=== PATIENT | female | born 1990 | race Caucasian/White ===

== ENCOUNTER 2018-05-16 09:35 | Observation (INO) | payer MEDICAID ==
[~2018-05-16] VITALS: Ht 162.6 cm; Wt 84.8 kg
[2018-05-16] MEDS ORDERED: PNV1TABL76 MT (10:17)
[2018-05-16] MEDS ORDERED: LACTATED RINGERS 1,000 ML IV SCH ×2 (10:20→10:45)
[2018-05-16 10:51] LABS: HEMOGLOBIN. 12.7 g/dL (12.0-16.0); MEAN CORPUSCULAR VOLUME 87.8 fL (81.0-99.0); MEAN PLATELET VOLUME 8.9 fl (7.4-10.4); PLATELET 212 x1000/uL (130-400); RED BLOOD CELL COUNT 4.22 mill/uL (4.2-5.4); RED CELL DISTRIBUTION WIDTH 14.2 % (11.6-14.6)
[2018-05-16 11:02] LABS: CHLORIDE 109 mEq/L (98-107)
[2018-05-16 11:13] LABS: PLATELET ESTIMATE NORMAL
[2018-05-16] MEDS ORDERED: ONDA4TAB5 PO (11:38)
== END 2018-05-16 11:50 | disposition home or self-care (01) ==
LOC: 8 EST LDRP 09:35
PROVIDERS: ADMIT Specialist; ATTEND Specialist
DX: O21.2 Late vomiting of pregnancy (principal); O26.893 Other specified pregnancy related conditions, third trimester; R19.7 Diarrhea, unspecified; M54.5 Low back pain; Z3A.33 33 weeks gestation of pregnancy
CPT/HCPCS: 36415; 96360; 96361; 99281; G0378; J7120

== ENCOUNTER 2021-09-23 19:42 | Inpatient (IN) | payer MEDICAID, OTHER ==
[~2021-09-23] VITALS: Ht 162.6 cm; Wt 89.4 kg
[~2021-09-23 19:42] MED LIST: ONDA4TAB5 PO; PNV1TABL76 MT
[2021-09-23] MEDS ORDERED: HYDROCODONE/ACETAMINOPHEN 5/325MG TABLET PO ONE (21:00)
[2021-09-23 21:22] LABS: CLARITY URINE CLOUDY (CLEAR); COLOR URINE RED (YELLOW); KETONES URINE NEGATIVE (NEGATIVE); LEUKOCYTE ESTERASE URINE 1+ (NEGATIVE); NITRITE URINE POSITIVE (NEGATIVE); OCCULT BLOOD URINE 3+ (NEGATIVE); PROTEIN URINE 4+ (NEGATIVE); SPECIFIC GRAVITY URINE 1.036 (1.005-1.030); UROBILINOGEN URINE 0.2 E.U./dL (0.2-1.0)
[2021-09-23 21:22] LABS: BASOPHILS % 0.8 % (0.0-2.0); EOSINOPHILS % 0.6 % (0.0-5.0); LYMPHOCYTES % 32.6 % (20.0-50.0); MEAN CORPUSCULAR HEMOGLOBIN 22.2 pg (28.0-32.0); MEAN CORPUSCULAR VOLUME 71.6 fL (81.0-99.0); MEAN PLATELET VOLUME 8.1 fl (7.4-10.4); MONOCYTES % 6.7 % (2.0-8.0); NEUTROPHILS % 59.3 % (40.0-76.0); PLATELET 330 x1000/uL (130-400); RED BLOOD CELL COUNT 3.16 mill/uL (4.2-5.4)
[2021-09-23 21:25] LABS: HEMATOCRIT. 22.7 % (36.0-48.0)
[2021-09-23 21:30] LABS: CHLORIDE 111 mEq/L (98-107)
[2021-09-23 21:39] LABS: B-HCG QUANTITATIVE < 1 mIU/mL (<3)
[2021-09-23] MEDS ORDERED: CEFTRIAXONE 1 G PREMIX 50 ML IV ONE (21:45)
[2021-09-23] MEDS ORDERED: CEFTRIAXONE 1,000 MG in DEXTROSE 5% WATER 50 ML IV NR (22:00)
[2021-09-24] MEDS ORDERED: MAGNESIUM/ALUMINUM HYDROXIDE/SIMETHICONE 30ML UDC PO PRN (00:30)
[2021-09-24] MEDS ORDERED: DIPHENHYDRAMINE 50MG/ML VIAL IV PRN (00:30)
[2021-09-24] MEDS ORDERED: IPRATROPIUM/ALBUTEROL 0.5-3(2.5)MG/3ML NEB HHN PRN (00:30)
[2021-09-24] MEDS ORDERED: DOCUSATE SODIUM 100MG CAPSULE PO PRN (00:30)
[2021-09-24] MEDS ORDERED: HYDRALAZINE 20MG/ML VIAL IV PRN (00:30)
[2021-09-24] MEDS ORDERED: CEFTRIAXONE 1 G PREMIX 50 ML IV SCH (00:30)
[2021-09-24] MEDS ORDERED: GUAIFENESIN 200MG/10ML SUGAR FREE UDC PO PRN (00:30)
[2021-09-24] MEDS ORDERED: ONDANSETRON HCL 4MG/2ML INJ IV PRN (00:30)
[2021-09-24] MEDS ORDERED: CLONIDINE 0.1MG TABLET PO PRN (00:30)
[2021-09-24] MEDS: MORPHINE SULFATE 2 MG/ML CPJ (NOT FOR IM USE) IV PRN ×5 (01:14→22:57)
[2021-09-24] MEDS: HYDROCODONE/ACETAMINOPHEN 5/325MG TABLET PO PRN ×2 (03:26→09:31)
[2021-09-24] MEDS: SODIUM CHLORIDE 0.9% INJ 3ML FLUSH IVF SCH ×3 (05:45→22:53)
[2021-09-24] MEDS: ACETAMINOPHEN 325MG TABLET PO PRN (05:47)
[2021-09-24] MEDS ORDERED: NALOXONE HCL 0.4MG/ML VIAL IV PRN (08:15)
[2021-09-24 09:05] VITALS: BP 109/66
[2021-09-24 10:41] LABS: HEMATOCRIT 22.8 % (36.0-48.0); HEMOGLOBIN 7.6 g/dL (12.0-16.0); MEAN CORPUSCULAR HEMOGLOBIN 24.3 pg (28.0-32.0); MEAN CORPUSCULAR VOLUME 72.9 fL (81.0-99.0); PLATELET 252 x1000/uL (130-400); RED BLOOD CELL COUNT 3.13 mill/uL (4.2-5.4); RED CELL DISTRIBUTION WIDTH 17.5 % (11.6-14.6)
[2021-09-24 12:00] VITALS: BP 117/68
[2021-09-24] MEDS: MEDROXYPROGESTERONE ACET 5MG TABLET PO SCH (13:52)
[2021-09-24 14:23] LABS: CHLORIDE 107 mEq/L (98-107)
[2021-09-24 16:00] VITALS: BP 100/51
[2021-09-24 17:30] VITALS: BP 88/41
[2021-09-24] MEDS ORDERED: SODIUM CHLORIDE 0.9% 500 ML IV NR (17:45)
[2021-09-24 18:25] VITALS: BP 108/52
[2021-09-24] MEDS: CEFTRIAXONE 1,000 MG in DEXTROSE 5% WATER 50 ML IV SCH (22:52)
[2021-09-25] VITALS (11 sets, daily range): BP systolic 88–118; BP diastolic 39–65
[2021-09-25] MEDS: MORPHINE SULFATE 2 MG/ML CPJ (NOT FOR IM USE) IV PRN ×4 (04:38→21:10)
[2021-09-25 05:54] LABS: BASOPHILS % 0.4 % (0.0-2.0); EOSINOPHILS % 1.5 % (0.0-5.0); HEMATOCRIT. 22.3 % (36.0-48.0); HEMOGLOBIN. 7.1 g/dL (12.0-16.0); LYMPHOCYTES % 39.1 % (20.0-50.0); MEAN CORPUSCULAR HEMOGLOBIN 23.7 pg (28.0-32.0); MEAN CORPUSCULAR VOLUME 74.1 fL (81.0-99.0); MEAN PLATELET VOLUME 8.2 fl (7.4-10.4); MONOCYTES % 8.9 % (2.0-8.0); NEUTROPHILS % 50.1 % (40.0-76.0); PLATELET 241 x1000/uL (130-400); RED BLOOD CELL COUNT 3.01 mill/uL (4.2-5.4); RED CELL DISTRIBUTION WIDTH 17.1 % (11.6-14.6)
[2021-09-25 06:19] LABS: CHLORIDE 111 mEq/L (98-107)
[2021-09-25] MEDS: ACETAMINOPHEN 325MG TABLET PO PRN (08:33)
[2021-09-25] MEDS: MEDROXYPROGESTERONE ACET 5MG TABLET PO SCH (08:34)
[2021-09-25] MEDS: SODIUM CHLORIDE 0.9% INJ 3ML FLUSH IVF SCH ×2 (14:00→20:51)
[2021-09-25] MEDS: CEFTRIAXONE 1,000 MG in DEXTROSE 5% WATER 50 ML IV SCH (20:51)
[2021-09-26] VITALS: BP 110/62
[2021-09-26] LABS: HEMATOCRIT 24.8 % (36.0-48.0)
[2021-09-26 04:00] VITALS: BP_SYST 112; BP_SYST 12; BP_DIAS 58
[2021-09-26] MEDS: MORPHINE SULFATE 2 MG/ML CPJ (NOT FOR IM USE) IV PRN ×3 (05:00→13:16)
[2021-09-26] MEDS: SODIUM CHLORIDE 0.9% INJ 3ML FLUSH IVF SCH ×2 (05:01→13:16)
[2021-09-26] MEDS: MEDROXYPROGESTERONE ACET 5MG TABLET PO SCH (08:53)
[2021-09-26] MEDS: ACETAMINOPHEN 325MG TABLET PO PRN ×2 (11:09→16:24)
[2021-09-26 11:29] LABS: BASOPHILS % 0.5 % (0.0-2.0); EOSINOPHILS % 1.4 % (0.0-5.0); HEMATOCRIT. 26.4 % (36.0-48.0); LYMPHOCYTES % 33.7 % (20.0-50.0); MEAN CORPUSCULAR HEMOGLOBIN 25.3 pg (28.0-32.0); MEAN CORPUSCULAR VOLUME 76.9 fL (81.0-99.0); MEAN PLATELET VOLUME 8.2 fl (7.4-10.4); MONOCYTES % 7.7 % (2.0-8.0); NEUTROPHILS % 56.7 % (40.0-76.0); PLATELET 273 x1000/uL (130-400); RED BLOOD CELL COUNT 3.44 mill/uL (4.2-5.4); RED CELL DISTRIBUTION WIDTH 19.4 % (11.6-14.6)
[2021-09-26 11:30] LABS: CHLORIDE 111 mEq/L (98-107)
[2021-09-26 11:43] LABS: HEMOGLOBIN. 8.7 g/dL (12.0-16.0)
[2021-09-26 12:00] VITALS: BP 93/42
[2021-09-26 16:00] VITALS: BP 120/51
[2021-09-26 16:12] VITALS: BP 110/60
== END 2021-09-26 16:45 | disposition home or self-care (01) | DRG 532 ==
LOC: ER 19:42 → MICUSO 22:40 → 7WST 09-24 09:03
PROVIDERS: ADMIT Internal Medicine; ATTEND Internal Medicine
PROC: 30233N1 Transfusion of Nonautologous Red Blood Cells into Peripheral Vein, Percutaneous Approach (ICD-10-PCS; principal; 2021-09-23)
DX: D25.9 Leiomyoma of uterus, unspecified (principal); R57.8 Other shock; D64.9 Anemia, unspecified; E87.6 Hypokalemia; N39.0 Urinary tract infection, site not specified
CPT/HCPCS: 36415; 76830; 76856; 80048; 80053; 81003; 84702; 85014; 85018; 85025; 85027; 86850; 86900; 86920; 99291; J0696; J2270; J2405; J7060; P9016

== ENCOUNTER 2021-12-22 19:56 | Emergency (ER) | payer OTHER ==
[~2021-12-22] VITALS: Ht 162.6 cm; Wt 88.3 kg
[2021-12-22] MEDS ORDERED: KETOROLAC 30MG/ML VIAL IV STA (20:49)
[2021-12-22] MEDS ORDERED: SODIUM CHLORIDE 0.9% 1,000 ML IV ONE (21:00)
[2021-12-22 21:31] LABS: CHLORIDE 106 mEq/L (98-107)
[2021-12-22 21:32] LABS: BASOPHILS % 0.8 % (0.0-2.0); EOSINOPHILS % 1.2 % (0.0-5.0); LYMPHOCYTES % 27.8 % (20.0-50.0); MEAN CORPUSCULAR HEMOGLOBIN 17.8 pg (28.0-32.0); MEAN PLATELET VOLUME 8.1 fl (7.4-10.4); NEUTROPHILS % 63.2 % (40.0-76.0); PLATELET 290 x1000/uL (130-400); RED BLOOD CELL COUNT 3.13 mill/uL (4.2-5.4); RED CELL DISTRIBUTION WIDTH 18.6 % (11.6-14.6)
[2021-12-22 21:33] LABS: CLARITY URINE CLOUDY (CLEAR); COLOR URINE YELLOW (YELLOW); KETONES URINE TRACE (NEGATIVE); LEUKOCYTE ESTERASE URINE TRACE (NEGATIVE); NITRITE URINE NEGATIVE (NEGATIVE); OCCULT BLOOD URINE 3+ (NEGATIVE); PH URINE 5.5 (4.5-8.0); PROTEIN URINE TRACE (NEGATIVE)
[2021-12-22 21:38] LABS: HEMOGLOBIN. 5.6 g/dL (12.0-16.0)
[2021-12-22 21:39] LABS: HEMATOCRIT. 19.1 % (36.0-48.0)
[2021-12-22 22:27] LABS: PLATELET ESTIMATE NORMAL
[2021-12-22] MEDS ORDERED: MORPHINE SULFATE 4 MG/ML CPJ (NOT FOR IM USE) IV STA (22:36)
[2021-12-22] MEDS ORDERED: ONDANSETRON HCL 4MG/2ML INJ IV STA (22:36)
[2021-12-23 00:55] VITALS: BP 108/55
== END 2021-12-23 01:19 | disposition short-term general hospital (02) ==
LOC: ER 19:56
DX: D50.9 Iron deficiency anemia, unspecified (principal); N93.8 Other specified abnormal uterine and vaginal bleeding
CPT/HCPCS: 36415; 80053; 81003; 81025; 85025; 86850; 86900; 86901; 86920; 93005; 96361; 96374; 96375; 99285; J1885; J2270; J2405; J7030; 36430; P9016

== ENCOUNTER 2022-06-19 18:37 | Emergency (ER) | payer OTHER ==
[~2022-06-19] VITALS: Ht 162.6 cm; Wt 95.0 kg
[2022-06-19] MEDS ORDERED: IBUPROFEN 400MG TABLET PO ONE (21:15)
[2022-06-19 21:20] LABS: CLARITY URINE CLOUDY (CLEAR); COLOR URINE DARK YELLOW (YELLOW); KETONES URINE TRACE (NEGATIVE); LEUKOCYTE ESTERASE URINE 1+ (NEGATIVE); NITRITE URINE NEGATIVE (NEGATIVE); OCCULT BLOOD URINE TRACE (NEGATIVE); PROTEIN URINE 1+ (NEGATIVE)
[2022-06-19] MEDS ORDERED: IBUP-2028 MT (22:20)
[2022-06-19] MEDS ORDERED: NITR-87 MT (22:20)
[2022-06-19 22:44] VITALS: BP 107/78
== END 2022-06-19 22:50 | disposition home or self-care (01) ==
LOC: ER 18:37
DX: M54.50 Low back pain, unspecified (principal); M79.10 Myalgia, unspecified site; N39.0 Urinary tract infection, site not specified; D64.9 Anemia, unspecified
CPT/HCPCS: 81003; 81025; 99283

== ENCOUNTER 2022-11-16 15:13 | Emergency (ER) | payer OTHER ==
[~2022-11-16] VITALS: Ht 162.6 cm; Wt 100.0 kg
[~2022-11-16 15:13] MED LIST changes: +IBUP-2028 MT; +NITR-87 MT
[2022-11-16 15:31] VITALS: O2SAT 98
[2022-11-16] MEDS ORDERED: KETOROLAC 30MG/ML VIAL IV ONE (16:15)
[2022-11-16] MEDS ORDERED: SODIUM CHLORIDE 0.9% 1,000 ML IV ONE (16:15)
[2022-11-16 16:30] LABS: CLARITY URINE CLEAR (CLEAR); COLOR URINE YELLOW (YELLOW); GLUCOSE URINE NEGATIVE (NEGATIVE); KETONES URINE NEGATIVE (NEGATIVE); LEUKOCYTE ESTERASE URINE NEGATIVE (NEGATIVE); NITRITE URINE NEGATIVE (NEGATIVE); OCCULT BLOOD URINE NEGATIVE (NEGATIVE); PROTEIN URINE NEGATIVE (NEGATIVE); SPECIFIC GRAVITY URINE 1.016 (1.005-1.030)
[2022-11-16 18:36] VITALS: BP 117/86; PULSE 97; RESP 18; TEMP 98.7
== END 2022-11-16 18:48 | disposition home or self-care (01) ==
LOC: ER 15:13
DX: R68.83 Chills (without fever) (principal); E86.0 Dehydration; Z20.822 Contact with and (suspected) exposure to COVID-19
CPT/HCPCS: 99283; 96374; 96361; 87426; 81003; 81025; J1885; J7030; C9803

== ENCOUNTER 2023-08-11 20:44 | Emergency (ER) | payer OTHER ==
[~2023-08-11] VITALS: Ht 162.6 cm; Wt 82.0 kg
[2023-08-11 20:54] VITALS: BP 133/92; PULSE 104; RESP 18; TEMP 98.9; O2SAT 98
[2023-08-11 21:37] LABS: CLARITY URINE CLEAR (CLEAR); COLOR URINE YELLOW (YELLOW); GLUCOSE URINE NEGATIVE (NEGATIVE); KETONES URINE NEGATIVE (NEGATIVE); LEUKOCYTE ESTERASE URINE NEGATIVE (NEGATIVE); NITRITE URINE NEGATIVE (NEGATIVE); OCCULT BLOOD URINE NEGATIVE (NEGATIVE); PH URINE 7.5 (4.5-8.0); PROTEIN URINE NEGATIVE (NEGATIVE); SPECIFIC GRAVITY URINE 1.022 (1.005-1.030)
[2023-08-12 00:29] LABS: BASOPHILS % 0.9 % (0.0-2.0); EOSINOPHILS % 1.6 % (0.0-5.0); HEMATOCRIT. 38.6 % (36.0-48.0); HEMOGLOBIN. 13.5 g/dL (12.0-16.0); LYMPHOCYTES % 26.6 % (20.0-50.0); MEAN CORPUSCULAR HEMOGLOBIN 30.9 pg (28.0-32.0); MEAN CORPUSCULAR HGB CONC 35.1 g/dL (31.0-37.0); MEAN CORPUSCULAR VOLUME 88.1 fL (81.0-99.0); MEAN PLATELET VOLUME 7.7 fl (7.4-10.4); MONOCYTES % 6.3 % (2.0-8.0); NEUTROPHILS % 64.6 % (40.0-76.0); PLATELET 295 x1000/uL (130-400); RED BLOOD CELL COUNT 4.38 mill/uL (4.2-5.4); RED CELL DISTRIBUTION WIDTH 13.9 % (11.6-14.6); WHITE BLOOD COUNT 11.9 x1000/uL (4.5-11.0)
[2023-08-12 00:38] LABS: CHLORIDE 109 mEq/L (98-107); POTASSIUM 3.4 mEq/L (3.5-5.1); SODIUM 138 mEq/L (136-145)
[2023-08-12 00:39] LABS: CARBON DIOXIDE 24 mEq/L (21-32)
[2023-08-12 00:44] LABS: CREATININE 0.6 mg/dL (0.6-1.0); GLUCOSE 93 mg/dL (70-105); UREA NITROGEN BLOOD 11 mg/dL (9-23)
[2023-08-12 01:15] LABS: ALANINE AMINOTRANSFERASE 39 IU/L (10-49); ALBUMIN 4.5 g/dL (3.2-4.8); ASPARTATE AMINOTRANSFERASE 22 IU/L (<34); BILIRUBIN DIRECT 0.2 mg/dL (<=3.0); BILIRUBIN TOTAL 0.6 mg/dL (0.1-1.0); PROTEIN TOTAL 7.1 g/dL (6.0-8.3)
[2023-08-12 01:19] LABS: HCG SCREEN NEGATIVE
[2023-08-12] MEDS ORDERED: METR70GE5 VG (03:17)
== END 2023-08-12 03:32 | disposition home or self-care (01) ==
LOC: ER 20:44
DX: M54.50 Low back pain, unspecified (principal); N76.0 Acute vaginitis; D64.9 Anemia, unspecified
CPT/HCPCS: 36415; 80048; 80076; 81003; 81025; 84703; 85025; 87210; 87491; 87591; 93005; 99284

== ENCOUNTER 2024-01-24 11:18 | Emergency (ER) | payer OTHER ==
[~2024-01-24] VITALS: Ht 162.6 cm; Wt 85.0 kg
[~2024-01-24 11:18] MED LIST changes: +METR70GE27 VG
[2024-01-24 11:19] VITALS: O2SAT 99
[2024-01-24 11:37] VITALS: BP 123/90; PULSE 114; RESP 16; TEMP 98.5; O2SAT 100
[2024-01-24 12:33] LABS: BASOPHILS % 0.4 % (0.0-2.0); EOSINOPHILS % 1.1 % (0.0-5.0); HEMATOCRIT. 42.5 % (36.0-48.0); HEMOGLOBIN. 15.1 g/dL (12.0-16.0); LYMPHOCYTES % 22.2 % (20.0-50.0); MEAN CORPUSCULAR HEMOGLOBIN 32.1 pg (28.0-32.0); MEAN CORPUSCULAR HGB CONC 35.6 g/dL (31.0-37.0); MEAN CORPUSCULAR VOLUME 90.1 fL (81.0-99.0); MEAN PLATELET VOLUME 7.7 fl (7.4-10.4); MONOCYTES % 5.4 % (2.0-8.0); NEUTROPHILS % 70.9 % (40.0-76.0); PLATELET 317 x1000/uL (130-400); RED BLOOD CELL COUNT 4.72 mill/uL (4.2-5.4); RED CELL DISTRIBUTION WIDTH 13.9 % (11.6-14.6); WHITE BLOOD COUNT 11.6 x1000/uL (4.5-11.0)
[2024-01-24 12:43] LABS: CHLORIDE 109 mEq/L (98-107); POTASSIUM 3.7 mEq/L (3.5-5.1); SODIUM 139 mEq/L (136-145)
[2024-01-24 12:45] LABS: CALCIUM 9.7 mg/dL (8.7-10.4); CARBON DIOXIDE 23 mEq/L (21-32)
[2024-01-24 12:50] LABS: CREATININE 0.7 mg/dL (0.6-1.0); GLUCOSE 92 mg/dL (70-105); UREA NITROGEN BLOOD 9 mg/dL (9-23)
[2024-01-24 12:51] LABS: ALBUMIN 4.6 g/dL (3.2-4.8)
[2024-01-24 12:52] LABS: ALANINE AMINOTRANSFERASE 100 IU/L (10-49); ASPARTATE AMINOTRANSFERASE 52 IU/L (<34); BILIRUBIN DIRECT 0.2 mg/dL (<=3.0); BILIRUBIN TOTAL 0.9 mg/dL (0.1-1.0); PROTEIN TOTAL 7.8 g/dL (6.0-8.3)
[2024-01-24] MEDS ORDERED: VISCOUS LIDOCAINE 2% 15 ML UDC PO NR (13:45)
[2024-01-24 14:10] LABS: CLARITY URINE CLEAR (CLEAR); COLOR URINE DARK YELLOW (YELLOW); GLUCOSE URINE NEGATIVE (NEGATIVE); KETONES URINE NEGATIVE (NEGATIVE); LEUKOCYTE ESTERASE URINE NEGATIVE (NEGATIVE); NITRITE URINE NEGATIVE (NEGATIVE); OCCULT BLOOD URINE NEGATIVE (NEGATIVE); PH URINE 5.5 (4.5-8.0); PROTEIN URINE TRACE (NEGATIVE); SPECIFIC GRAVITY URINE 1.029 (1.005-1.030)
[2024-01-24] MEDS: MAGNESIUM/ALUMINUM HYDROXIDE/SIMETHICONE 30ML UDC PO ONE (14:23)
[2024-01-24] MEDS: ONDANSETRON 4MG ODT PO ONE (14:23)
[2024-01-24] MEDS: FAMOTIDINE 20MG TABLET PO ONE (14:23)
[2024-01-24 14:27] LABS: BACTERIA URINE 1+; SQUAMOUS EPITHELIAL CELL URINE 1+ /lpf (RARE/1+); WBC URINE 0-2 /hpf (0-2); YEAST URINE NONE SEEN
[2024-01-24 14:28] LABS: CALCIUM OXALATE CRYSTALS URINE 1+ /lpf; RBC URINE NONE SEEN /hpf (0-2)
[2024-01-24 15:29] LABS: TROPONIN I HIGH SENSITIVITY < 4 ng/L (3.0-34)
[2024-01-24 15:47] LABS: HCG SCREEN NEGATIVE
== END 2024-01-24 16:11 | disposition left against medical advice (07) ==
LOC: ER 11:18
DX: R10.13 Epigastric pain (principal); M54.9 Dorsalgia, unspecified; R42 Dizziness and giddiness; D64.9 Anemia, unspecified
CPT/HCPCS: 99284; 80076; 80048; 81003; 81025; 84703; 83690; 85025; 84484; 36415; 29130; 93005; Q0162

== ENCOUNTER 2024-04-28 15:30 | Emergency (ER) | payer SELFPAY ==
[~2024-04-28] VITALS: Ht 162.6 cm; Wt 83.4 kg
[2024-04-28 15:37] VITALS: O2SAT 100
[2024-04-28 15:56] VITALS: BP 126/89; PULSE 105; RESP 18; TEMP 36.6; O2SAT 98
[2024-04-28 16:16] LABS: BASOPHILS % 0.8 % (0.0-2.0); EOSINOPHILS % 0.6 % (0.0-5.0); HEMATOCRIT. 42.5 % (36.0-48.0); HEMOGLOBIN. 14.6 g/dL (12.0-16.0); LYMPHOCYTES % 12.7 % (20.0-50.0); MEAN CORPUSCULAR HEMOGLOBIN 30.8 pg (28.0-32.0); MEAN CORPUSCULAR HGB CONC 34.4 g/dL (31.0-37.0); MEAN CORPUSCULAR VOLUME 89.7 fL (81.0-99.0); MEAN PLATELET VOLUME 7.9 fl (7.4-10.4); MONOCYTES % 5.1 % (2.0-8.0); NEUTROPHILS % 80.8 % (40.0-76.0); PLATELET 331 x1000/uL (130-400); RED BLOOD CELL COUNT 4.74 mill/uL (4.2-5.4); WHITE BLOOD COUNT 16.3 x1000/uL (4.5-11.0)
[2024-04-28 16:26] LABS: CHLORIDE 107 mEq/L (98-107); POTASSIUM 3.9 mEq/L (3.5-5.1); SODIUM 139 mEq/L (136-145)
[2024-04-28 16:27] LABS: CALCIUM 9.3 mg/dL (8.7-10.4); CARBON DIOXIDE 23 mEq/L (21-32)
[2024-04-28 16:32] LABS: CREATININE 0.6 mg/dL (0.6-1.0); GLUCOSE 104 mg/dL (70-105); UREA NITROGEN BLOOD 11 mg/dL (9-23)
[2024-04-28 18:16] VITALS: TEMP 97.9
[2024-04-28] MEDS: ACETAMINOPHEN 325MG TABLET PO ONE (18:16)
== END 2024-04-28 21:12 | disposition left against medical advice (07) ==
LOC: ER 15:30
DX: S40.211A Abrasion of right shoulder, initial encounter (principal); S80.12XA Contusion of left lower leg, initial encounter; S09.90XA Unspecified injury of head, initial encounter; Z79.899 Other long term (current) drug therapy; V09.9XXA Pedestrian injured in unspecified transport accident, initial encounter; Y93.89 Activity, other specified; Y92.89 Other specified places as the place of occurrence of the external cause; Y99.8 Other external cause status
CPT/HCPCS: 36415; 73030; 73562; 80048; 85025; 99284

== ENCOUNTER 2024-09-30 15:02 | Emergency (ER) | payer SELFPAY ==
[~2024-09-30] VITALS: Ht 162.6 cm; Wt 90.0 kg
[2024-09-30 15:09] VITALS: TEMP 36.6; O2SAT 99
[2024-09-30 15:10] VITALS: O2SAT 99
[2024-09-30 17:41] VITALS: BP 126/73; PULSE 108; RESP 20
[2024-09-30] MEDS: KETOROLAC 15MG/ML VIAL IM ONE (17:41)
[2024-09-30 17:42] VITALS: TEMP 97.9
[2024-09-30] MEDS: ACETAMINOPHEN 325MG TABLET PO ONE (17:42)
[2024-09-30 17:46] LABS: BASOPHILS % 0.7 % (0.0-2.0); EOSINOPHILS % 1.2 % (0.0-5.0); HEMATOCRIT. 39.4 % (36.0-48.0); HEMOGLOBIN. 13.9 g/dL (12.0-16.0); LYMPHOCYTES % 24.4 % (20.0-50.0); MEAN PLATELET VOLUME 7.7 fl (7.4-10.4); MONOCYTES % 6.1 % (2.0-8.0); NEUTROPHILS % 67.6 % (40.0-76.0); PLATELET 294 x1000/uL (130-400); RED BLOOD CELL COUNT 4.42 mill/uL (4.2-5.4); RED CELL DISTRIBUTION WIDTH 13.8 % (11.6-14.6)
[2024-09-30 17:58] LABS: HCG SCREEN NEGATIVE
[2024-09-30 17:59] LABS: CREATININE 0.7 mg/dL (0.6-1.0); UREA NITROGEN BLOOD 10 mg/dL (9-23)
[2024-09-30 18:01] LABS: ASPARTATE AMINOTRANSFERASE 31 IU/L (<34); BILIRUBIN DIRECT 0.3 mg/dL (<=3.0); BILIRUBIN TOTAL 1.0 mg/dL (0.1-1.0); PROTEIN TOTAL 7.2 g/dL (6.0-8.3)
== END 2024-09-30 21:07 | disposition left against medical advice (07) ==
LOC: ER 15:05
DX: M54.50 Low back pain, unspecified (principal); R20.2 Paresthesia of skin; Z79.899 Other long term (current) drug therapy
CPT/HCPCS: 99283; 80076; 80048; 84703; 83690; 85025; 36415; 96372; J1885